=== PATIENT | male | born 1970 | race African-American/Black ===

== ENCOUNTER 2016-04-26 02:59 | Emergency (ER) ==
--- NOTE | 2016-04-26 03:20 | ED EKG INTERP ---
EKG Interpretation - EKG Time of EKG reading by physician:: 03:09 EKG Read and Signed by:: Kiran Mchugh EKG Interpretation (*Must complete 3 of following elements*): Abnormal (L axis deviation; Voltage criteria for LVH) Rate: 87 Rhythm: Sinus rhythm with 1st degree AV block Attestation - Scribe Verification/Attestation Scribe:: Win Barrientos Acting as Scribe for:: Kiran Mchugh Scribjordi documention review:: This chart was documented by a scribe and accurately reflects the service the provider performed and the decisions made by the provider.
[2016-04-26] MEDS ORDERED: MORPHINE IV ONE ×2 (03:24→05:16)
[2016-04-26] MEDS ORDERED: SODIUM CHLORIDE 0.9% INJ ONE (03:25)
[2016-04-26] MEDS ORDERED: PHENERGAN IV ONE (03:25)
[2016-04-26] MEDS ORDERED: TORADOL IV ONE (05:16)
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
[2016-04-26 06:42] VITALS: BP 129/94
--- NOTE | 2016-04-26 08:01 | Diag Imaging Result Document ---
PROCEDURE NAME: CT THORAX W/CONTRAST - 04/26/2016 CT OF THE CHEST WITH INTRAVENOUS CONTRAST: FINDINGS: Contrast opacification of the aorta is suboptimal. There are no apparent pulmonary arterial filling defects. No abnormal fluid collections are demonstrated in the mediastinum. There is a small fairly dense fluid collection in the left hemithorax which may be a hemothorax. There is no evidence of pneumothorax. There are patchy alveolar opacities present particularly in the right middle lobe and lingula as well as the posterior lower lobes. The possibility of pulmonary contusion cannot be excluded. There is a fracture of the left 1st rib which is somewhat comminuted posteriorly. There is apparent subpleural hematoma in the left apex. The anterior 2nd rib is fractured on the left. There are also fractures of the anterior 3rd, the anterolateral 4th, the lateral 5th, 6th and 7th ribs on the left. There is fracture of the anterior right 1st rib. There are spondylotic changes with bridging osteophytes in the mid thoracic spine but the thoracic spine appears to be intact. The possibility of a minor injury at the manubriosternal joint cannot be excluded. There are coronary calcifications. There is an apparent fracture of the left transverse process of C7. IMPRESSION: Multiple rib fractures as described with subpleural hematoma and minimal hemothorax on the left. Multiple pulmonary contusions or hematoma. No evidence of pneumothorax. No definite evidence of mediastinal hematoma or aortic injury.
--- NOTE | 2016-04-26 10:42 | Diag Imaging Result Document ---
PROCEDURE NAME: HEAD/C-SPINE W/O CONTRAST - 04/26/2016 CT OF THE HEAD WITHOUT CONTRAST: FINDINGS: There is no evidence of intracranial bleed or mass effect. There has been no significant change in the appearance of the brain since the previous study of 05/08/2015. The calvarium is intact. IMPRESSION: No evidence of acute intracranial disease. CT OF THE CERVICAL SPINE: FINDINGS: There is a fracture of the transverse process of C7 on the left and bilateral 1st rib fractures are present. This was not the case on 05/08/2015. There is no evidence of fracture or subluxation otherwise and no prevertebral soft-tissue swelling is present. IMPRESSION: 1st rib fractures and left transverse process of C7 fracture.
--- NOTE | 2016-04-26 10:49 | Diag Imaging Result Document ---
PROCEDURE NAME: FACIAL BONES W/O CONTRAST - 04/26/2016 CT OF THE FACIAL BONES: FINDINGS: There is mucosal thickening in the frontal and anterior ethmoid air cells. There are no air fluid levels. The mandible and maxilla appear to be intact. There is pneumatization of the middle ear cavities and mastoid air cells. Otherwise, there is no evidence of acute bony disease. The sinus changes are slightly worse than on the previous study of 05/08/2015. IMPRESSION: Chronic ethmoid and frontal sinusitis. No evidence of acute bony disease.
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
== END 2016-04-26 06:42 | disposition short-term general hospital (02) ==
LOC: EDBD → ED 02:59
DX: S27.322A Contusion of lung, bilateral, initial encounter (principal); S12.600A Unspecified displaced fracture of seventh cervical vertebra, initial encounter for closed fracture; S22.43XA Multiple fractures of ribs, bilateral, initial encounter for closed fracture; S22.20XA Unspecified fracture of sternum, initial encounter for closed fracture; R94.31 Abnormal electrocardiogram [ECG] [EKG]; R07.81 Pleurodynia; K08.89 Other specified disorders of teeth and supporting structures; R07.89 Other chest pain; J32.2 Chronic ethmoidal sinusitis; J32.1 Chronic frontal sinusitis; I10 Essential (primary) hypertension; E11.9 Type 2 diabetes mellitus without complications; Z79.82 Long term (current) use of aspirin; Z79.4 Long term (current) use of insulin; Z79.899 Other long term (current) drug therapy
CPT/HCPCS: 70450; 70486; 71260; 72125; 93005; J1885; J2270; J2550; Q9967

== ENCOUNTER 2016-05-03 21:23 | Emergency (ER) ==
[2016-05-03] MEDS ORDERED: LASIX IV ONE (21:53)
[2016-05-03] MEDS ORDERED: MORPHINE IV ONE ×2 (21:55→23:14)
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
--- NOTE | 2016-05-03 22:11 | EKG Report ---
Test Performed on : 05/03/2016 9:50:47 PM Test Reason : Suspected Overdose Blood Pressure : / mmHG Vent. Rate : 078 BPM Atrial Rate : 078 BPM P-R Int : 200 ms QRS Dur : 104 ms QT Int : 374 ms P-R-T Axes : 036 -26 009 degrees QTc Int : 426 ms Normal sinus rhythm. Moderate voltage criteria for LVH, may be normal variant Borderline ECG When compared with ECG of 26-APR-2016 03:09, No significant change was found Unconfirmed Result
[2016-05-03 22:34] LABS: BASO% 0.6 % (0.0-0.8); EOS# 0.25 X1000 (0.0-0.7); EOS% 3.1 % (0.0-10.0); HEMATOCRIT 41.8 % (42.0-52.0); HEMOGLOBIN 13.8 g/dL (14.0-18.0); IMM GRAN# 0.02 X1000 (0.0-0.04); IMM GRAN% 0.3 % (0.0-0.5); LYMPH# 2.74 X1000 (1.2-3.4); LYMPH% 34.3 % (20.5-51.1); MANUAL DIFF NEEDED? YES; MCH 27.9 PG (27-31); MCV 84.6 FL (81-99); MONO% 8.8 % (1.7-9.3); MPV 10.1 FL (7.4-10.4); NEUT% 52.9 % (42.2-75.2); PLT 304 X1000 (130-400); RBC 4.94 XMIL (4.7-6.1)
[2016-05-03 22:58] LABS: AGAP 10; ALBUMIN 4.1 g/dL (3.5-5.0); ALKALINE PHOSPHATASE 115 U/L (32-122); BUN 11 mg/dL (8-22); CALCIUM 9.5 mg/dL (8.8-10.2); CHLORIDE 102 mmol/L (98-107); COSMO 278; GOT 34 U/L (10-34); GPT 60 U/L (10-44); POTASSIUM 4.4 mmol/L (3.5-5.1); SODIUM 135 mmol/L (136-145); TCO2 23 mmol/L (25-35); TOTAL PROTEIN 6.7 g/dL (6.3-8.3)
[2016-05-03 23:02] LABS: LYMPHS 22 % (21-51); MONO 4 % (1-9)
[2016-05-03] MEDS ORDERED: PHENERGAN IV ONE (23:14)
[2016-05-03] MEDS ORDERED: SODIUM CHLORIDE 0.9% INJ ONE (23:14)
[2016-05-03] MEDS ORDERED: MORPHINE ONE (23:14)
[2016-05-03] MEDS ORDERED: PHENERGAN ONE (23:14)
[2016-05-04] MEDS ORDERED: LABETALOL IV ONE (00:56)
[2016-05-04] MEDS ORDERED: APRESOLINE IV ONE (00:56)
[2016-05-04] MEDS ORDERED: LABETALOL ONE (01:00)
[2016-05-04] MEDS ORDERED: MORPHINE IV ONE (01:07)
[2016-05-04] MEDS ORDERED: LR 1,000 ML IV PRN (01:08)
[2016-05-04 01:25] VITALS: BP 126/94
--- NOTE | 2016-05-04 07:02 | Diag Imaging Result Document ---
PROCEDURE NAME: CT THORAX W/CONTRAST - 05/03/2016 CT CHEST WITH INTRAVENOUS CONTRAST: COMPARISON: Compared to 04/26/2016. FINDINGS: There is a 3.2 cm left pleural effusion posteriorly and inferiorly in the midline which has developed since the prior exam. No right-sided effusion. There is a small pseudoaneurysm in the aortic arch at the beginning of the descending thoracic aorta which measures 1.5 x 0.7 cm. This may have developed since the prior exam. The heart is enlarged. Normal opacification of the pulmonary arteries and their proximal branches. Poor opacification of the distal branches. No blood in the mediastinum. No enlarged lymph nodes. There is atelectasis versus infiltrates in the lower lobes. There are multiple bilateral acute rib fractures. These were described on the prior report and are not new since the prior exam. No pneumothoraces. No contusions. IMPRESSION: Development of a left pleural effusion and apparent pseudoaneurysm in the aortic arch just at the beginning of the descending thoracic aorta. Multiple acute fractures are present on the prior exam and have been previously described. A preliminary report was called to Dr. Hanson in the emergency room at 12:33 a.m. MTDD
--- NOTE | 2016-05-04 07:56 | Diag Imaging Result Document ---
PROCEDURE NAME: C-SPINE/T-SPINE W/O CONTRAST - 05/03/2016 CT CERVICAL SPINE WITHOUT CONTRAST AND THORACIC SPINE WITHOUT CONTRAST: CT CERVICAL SPINE WITHOUT: FINDINGS: There is good alignment to the cervical spine. No precervical soft tissue swelling. No subluxation. No fracture. No disk herniation. IMPRESSION: No acute bony injury. CT THORACIC SPINE WITHOUT CONTRAST: FINDINGS: There is good alignment to the thoracic spine. No compressed vertebra. No subluxation. [id number] degenerative bone spurring in the mid and lower thoracic spine. I believe there is a fracture to the right transverse process of the T1 vertebra. There is also a fracture to the anterior right 1st rib. There is an acute fracture to the posterior left 1st rib. There is a fracture to the anterior left 3rd and 4th ribs. IMPRESSION: 1. Multiple bilateral rib fractures. No pneumothoraces although there is a small left pleural effusion. 2. Possible nondisplaced fracture to the lateral portion of the right transverse process of the T1 vertebra. A preliminary report was given at 12:21 a.m.
== END 2016-05-04 01:34 | disposition short-term general hospital (02) ==
LOC: P.ED 21:23
DX: I71.2 Thoracic aortic aneurysm, without rupture (principal); J94.2 Hemothorax; J90 Pleural effusion, not elsewhere classified; S22.43XA Multiple fractures of ribs, bilateral, initial encounter for closed fracture; R94.31 Abnormal electrocardiogram [ECG] [EKG]; M54.6 Pain in thoracic spine; R51 Headache; M25.512 Pain in left shoulder; M79.622 Pain in left upper arm; R20.0 Anesthesia of skin; R20.2 Paresthesia of skin; R22.43 Localized swelling, mass and lump, lower limb, bilateral; I10 Essential (primary) hypertension; E78.5 Hyperlipidemia, unspecified; I25.2 Old myocardial infarction; E11.9 Type 2 diabetes mellitus without complications; F17.210 Nicotine dependence, cigarettes, uncomplicated; Z79.82 Long term (current) use of aspirin; Z79.4 Long term (current) use of insulin; Z79.899 Other long term (current) drug therapy; Z71.6 Tobacco abuse counseling; V89.2XXD Person injured in unspecified motor-vehicle accident, traffic, subsequent encounter
CPT/HCPCS: 71260; 72125; 72128; 80053; 84484; 85025; 85379; 93005; 96374; 96375; 96376; J0360; J1940; J2270; J2550; Q9967